=== PATIENT | male | born 1980 ===

== ENCOUNTER → 2019-05-07 | Outpatient (CLI) | payer BC | END | disposition home or self-care (01) | LOC: LAB SHORT 08:23 → PLD 08:23 | DX: D48.5 Neoplasm of uncertain behavior of skin (principal); L72.9 Follicular cyst of the skin and subcutaneous tissue, unspecified | CPT/HCPCS: 88305 ==

== ENCOUNTER → 2019-05-21 | Outpatient (CLI) | payer BC | END | disposition home or self-care (01) | LOC: LAB SHORT 14:30 → LAB 14:30 | DX: L08.0 Pyoderma (principal) | CPT/HCPCS: 87070; 87205 ==